=== PATIENT | male | born 2000 | race African-American/Black ===

== ENCOUNTER 2025-08-29 05:28 | Emergency (ER) | payer OTHER, SELFPAY ==
[~2025-08-29] VITALS: Ht 167.6 cm; Wt 62.5 kg
[2025-08-29] MEDS: IBUPROFEN 800 MG TAB PO ONE (07:35)
[2025-08-29 09:25] LABS: BASO # 0.0 10^3/uL (0.0-0.2); BASO % 0.2 % (0.0-1.0); EOS # 0.0 10^3/uL (0.0-0.5); EOS % 0.0 % (0.0-3.0); LYMPH # 2.4 10^3/uL (1.5-5.0); LYMPH % 19.4 % (24.0-44.0); MONO # 1.2 10^3/uL (0.0-0.8); MONO % 9.8 % (2.0-8.0); NEUTROPHILS # 8.8 10^3/uL (1.5-8.5); NEUTROPHILS % 70.3 % (36.0-66.0); PLATELET COUNT, AUTOMATED 263 10^3/uL (150-450)
[2025-08-29 10:34] LABS: CK-MB VALUE MASS < 1.0 NG/ML (<3.6)
[2025-08-29 10:36] LABS: CALCIUM LEVEL 8.7 MG/DL (8.5-10.1); CARBON DIOXIDE LEVEL 23 MMOL/L (20-31); CHLORIDE LEVEL 95 MMOL/L (98-107); CREATININE FOR GFR 1.02 MG/DL (0.70-1.30); GLOMERULAR FILTRATION RATE > 90.0 (>60); MAGNESIUM LEVEL 1.9 MG/DL (1.8-2.4); POTASSIUM SERUM 3.6 MMOL/L (3.5-5.1); SODIUM LEVEL 132 MMOL/L (136-145)
[2025-08-29 10:40] LABS: CPK CREATINE PHOSPHOKINASE 221 U/L (46-171)
[2025-08-29 11:15] VITALS: TEMP 97.1
[2025-08-29 12:09] LABS: CK-MB VALUE MASS < 1.0 NG/ML (<3.6)
[2025-08-29 12:10] LABS: CPK CREATINE PHOSPHOKINASE 246 U/L (46-171)
[2025-08-29] MEDS: AMOXICILLIN 500 MG CAP PO ONE (12:41)
[2025-08-29] MEDS: NS (Normal Saline) 0.9% 1,000 ML IV ONE (12:41)
[2025-08-29] MEDS: MAGIC MOUTHWASH 5 ML ORAL SYRINGE SSP ONE (13:11)
[2025-08-29] MEDS ORDERED: AMOX500C PO (13:16)
[2025-08-29] MEDS ORDERED: MAGICMW SSP (13:16)
[2025-08-29 13:33] VITALS: BP 120/68; O2SAT 99
== END 2025-08-29 13:34 | disposition home or self-care (01) ==
LOC: M ED 05:28
DX: J02.0 Streptococcal pharyngitis (principal); R55 Syncope and collapse; F17.200 Nicotine dependence, unspecified, uncomplicated